=== PATIENT | male | born 1925 | race Hispanic/Latino ===

== ENCOUNTER 2017-09-05 14:30 | Emergency (ER) | payer MEDICARE ==
[2017-09-05 15:05] LABS: HEMATOCRIT 24.4 % (42-54); MEAN CORPUSCULAR HEMOGLOBIN 32.2 pg (27.0-33.0); MEAN CORPUSCULAR HGB CONC 34.4 g/dL (32.0-36.0); MEAN CORPUSCULAR VOLUME 93.6 fL (79-99); PLATELET COUNT (AUTO) 174 K/uL (130-400); RED BLOOD CELL COUNT(AUTO) 2.61 MIL/uL (4.50-6.20); RED CELL DISTRIBUTION WIDTH 18.6 % (11.0-15.5)
[2017-09-05 15:12] LABS: WHITE BLOOD COUNT (AUTO) 53.9 K/uL (4.8-10.8)
[2017-09-05 15:14] LABS: CREATININE 1.5 mg/dL (0.5-1.5); POTASSIUM 3.2 mmol/L (3.5-5.1)
[2017-09-05 15:19] LABS: ALBUMIN 3.7 g/dL (3.5-5.0); BILIRUBIN,TOTAL 0.5 mg/dL (0.2-1.0); TOTAL PROTEIN, SERUM 7.1 g/dL (6.0-8.3)
[2017-09-05 15:58] LABS: BAND NEUTROPHILS % (MANUAL) 4 % (0-2); LYMPHOCYTES % (MANUAL) 5 % (22-44); MAN.DIFF COMMENT-IMPRESSION MANUAL DIFFERENTIAL; METAMYELOCYTES % 2 % (0-0); MONOCYTES % (MANUAL) 38 % (2-9); PROMYELOCYTES % 2 (0-0); SEGMENTED NEUTROPHILS % 49 % (40-70)
[2017-09-05 16:50] LABS: APPEARANCE,URINE Clear (CLEAR); BILIRUBIN,URINE Negative (NEGATIVE); COLOR,URINE Yellow (YELLOW); GLUCOSE, URINE (UA) Negative (NEGATIVE); KETONES,URINE Negative (NEGATIVE); LEUKOCYTE ESTERASE ,URINE Negative (NEGATIVE); NITRATE,URINE Negative (NEGATIVE); OCCULT BLOOD,URINE Negative (NEGATIVE); PH,URINE 5.5 (5.0-8.0); PROTEIN,URINE Negative (NEGATIVE)
== END 2017-09-05 18:59 | disposition home or self-care (01) ==
LOC: EDH 14:30
DX: C95.90 Leukemia, unspecified not having achieved remission (principal); R59.0 Localized enlarged lymph nodes; Z87.891 Personal history of nicotine dependence
CPT/HCPCS: 36415; 71020; 73502; 76882; 80053; 81003; 82150; 83690; 85025; 85651; 86141; 88313

== ENCOUNTER 2017-09-08 10:51 | Inpatient (IN) | payer MEDICARE ==
[~2017-09-08] VITALS: Ht 157.5 cm; Wt 57.6 kg
[2017-09-08] MEDS ORDERED: IPRATROPIUM/ALBUTEROL SULFATE 3 ML SOLUTION IH ONE ×2 (10:56→12:37)
[2017-09-08 11:19] LABS: HEMATOCRIT 27.9 % (42-54); MEAN CORPUSCULAR HEMOGLOBIN 29.9 pg (27.0-33.0); MEAN CORPUSCULAR HGB CONC 31.7 g/dL (32.0-36.0); MEAN CORPUSCULAR VOLUME 94.4 fL (79-99); PLATELET COUNT (AUTO) 28 K/uL (130-400); RED BLOOD CELL COUNT(AUTO) 2.95 MIL/uL (4.50-6.20); RED CELL DISTRIBUTION WIDTH 20.1 % (11.0-15.5)
[2017-09-08 11:53] LABS: ALBUMIN 3.7 g/dL (3.5-5.0); BILIRUBIN,TOTAL 1.3 mg/dL (0.2-1.0); TOTAL PROTEIN, SERUM 7.3 g/dL (6.0-8.3); WHITE BLOOD COUNT (AUTO) 128.9 K/uL (4.8-10.8)
[2017-09-08 11:58] LABS: POTASSIUM 2.7 mmol/L (3.5-5.1)
[2017-09-08] MEDS ORDERED: OSELTAMIVIR PHOSPHATE 75 MG CAP ONE (12:19)
[2017-09-08] MEDS ORDERED: SODIUM CHLORIDE 0.9% 1000ML 2,000 ML IV ONE (12:21)
[2017-09-08] MEDS ORDERED: ZOSYN 3.375GM+NS 50ML 50 ML IV ONE (12:21)
[2017-09-08 12:22] LABS: CREATINE KINASE MB 0.9 ng/mL (0.5-3.6)
[2017-09-08] MEDS ORDERED: POTASSIUM BICARB/CIT AC 25 MEQ TABLET.EFF ONE (12:29)
[2017-09-08 12:55] LABS: BAND NEUTROPHILS % (MANUAL) 3 % (0-2); LYMPHOCYTES % (MANUAL) 5 % (22-44); MAN.DIFF COMMENT-IMPRESSION MANUAL DIFFERENTIAL; MONOCYTES % (MANUAL) 68 % (2-9); SEGMENTED NEUTROPHILS % 24 % (40-70)
[2017-09-08 13:59] LABS: APPEARANCE,URINE Cloudy (CLEAR); BILIRUBIN,URINE Negative (NEGATIVE); COLOR,URINE Yellow (YELLOW); GLUCOSE, URINE (UA) Negative (NEGATIVE); KETONES,URINE Negative (NEGATIVE); LEUKOCYTE ESTERASE ,URINE Negative (NEGATIVE); NITRATE,URINE Negative (NEGATIVE); OCCULT BLOOD,URINE Small (NEGATIVE); PROTEIN,URINE POS 2+ (NEGATIVE)
[2017-09-08 14:15] VITALS: BP 124/56
[2017-09-08 14:17] LABS: BACTERIA,URINE Rare /HPF (None Seen); RBC,URINE 0-1 /HPF (0-1); SQUAMOUS EPITHELIAL CELL,UR Rare /LPF (0-2); WBC,URINE None Seen /HPF (0-1)
[2017-09-08] MEDS ORDERED: SODIUM CHLORIDE 0.9% 10 ML VIAL IVP PRN (15:00)
[2017-09-08] MEDS ORDERED: IPRATROPIUM/ALBUTEROL SULFATE 3 ML SOLUTION IH PRN (15:00)
[2017-09-08] MEDS: WATER FOR INJECTION,STERILE 5 ML VIAL INJ SCH (15:55)
[2017-09-08] MEDS: CEFTRIAXONE SODIUM 1 GM IVP SCH (15:55)
[2017-09-08] MEDS: AZITHROMYCIN 500MG+NS 250ML 250 ML IV SCH (15:55)
[2017-09-08] MEDS ORDERED: TAMS0.4C32 PO (16:08)
[2017-09-08] MEDS ORDERED: HYDR500C2 PO (16:08)
[2017-09-08] MEDS: INSULIN R PO SS1 SQ SCH ×2 (16:30→21:00)
[2017-09-08 16:45] VITALS: BP 132/63
[2017-09-08] MEDS ORDERED: PHARMACY COMMUNICATION MISC SCH ×4 (16:45→20:00)
[2017-09-08] MEDS ORDERED: POTASSIUM CHLORIDE 20MEQ/100ML 100 ML IV PRN (16:45)
[2017-09-08] MEDS ORDERED: LIDOCAINE HCL-MPF 1% 2ML VIAL IVP PRN (16:45)
[2017-09-08] MEDS ORDERED: POTASSIUM CHLORIDE 10% ELIXIR 20 MEQ/15 ML UDCUP PO PRN (16:45)
[2017-09-08] MEDS ORDERED: POTASSIUM CHLORIDE 20 MEQ ERTAB PO PRN (16:45)
[2017-09-08] MEDS ORDERED: ACETAMINOPHEN 325 MG TAB PO PRN (16:45)
[2017-09-08] MEDS ORDERED: COMPOUND PO MISCELLANEOUS 1 EACH MISC MISC PRN (17:00)
[2017-09-08] MEDS ORDERED: VANCOMYCIN PROTOCOL PER PHARMACY IV SCH (19:15)
[2017-09-08] MEDS ORDERED: COMPOUND IV REFRIGERATED 1 EACH IVSOLN MISC PRN (19:30)
[2017-09-08 19:42] LABS: ABG BASE EXCESS -2.2 mmol/L (-2.0-3.0); ABG HCO3 19.9 mmol/L (21.0-28.0); ABG OXYGEN SATURATION 92.7 % (95.0-99.0); ABG PCO2 28 mmHg (35-48)
[2017-09-08] MEDS ORDERED: LIDOCAINE HCL-MPF 1% 2ML VIAL IV PRN (20:00)
[2017-09-08] MEDS ORDERED: POTASSIUM CHLORIDE 10MEQ/100ML 100 ML IV PRN (20:00)
[2017-09-08 20:17] VITALS: BP 110/46
[2017-09-08] MEDS: VANCOMYCIN IV SCH (20:38)
[2017-09-08] MEDS: DEXTROSE 5% IV SCH (20:38)
[2017-09-08] MEDS: WATER IV SCH (20:38)
[2017-09-08] MEDS: OSELTAMIVIR SUSP 15 MG/ML (6 CAPS/29ML) PO SCH ×2 (20:39)
[2017-09-08] MEDS: ZOSYN 3.375GM+NS 50ML 50 ML IV SCH (23:12)
[2017-09-08] MEDS: IPRATROPIUM/ALBUTEROL SULFATE 3 ML SOLUTION IH SCH (23:16)
[2017-09-09 00:03] VITALS: BP 112/54
[2017-09-09 03:59] VITALS: BP 119/60
[2017-09-09] MEDS: IPRATROPIUM/ALBUTEROL SULFATE 3 ML SOLUTION IH SCH ×3 (04:35→17:19)
[2017-09-09 05:21] LABS: ALBUMIN 2.7 g/dL (3.5-5.0); BILIRUBIN,TOTAL 0.8 mg/dL (0.2-1.0); CREATININE 1.7 mg/dL (0.5-1.5); POTASSIUM 3.8 mmol/L (3.5-5.1); TOTAL PROTEIN, SERUM 5.6 g/dL (6.0-8.3)
[2017-09-09] MEDS: ZOSYN 3.375GM+NS 50ML 50 ML IV SCH ×2 (06:15→14:34)
[2017-09-09] MEDS: INSULIN R PO SS1 SQ SCH ×4 (06:23→21:00)
[2017-09-09 06:39] LABS: HEMATOCRIT 21.4 % (42-54); MEAN CORPUSCULAR HEMOGLOBIN 30.9 pg (27.0-33.0); MEAN CORPUSCULAR HGB CONC 33.3 g/dL (32.0-36.0); MEAN CORPUSCULAR VOLUME 92.6 fL (79-99); PLATELET COUNT (AUTO) 14 K/uL (130-400); RED BLOOD CELL COUNT(AUTO) 2.31 MIL/uL (4.50-6.20); RED CELL DISTRIBUTION WIDTH 20.2 % (11.0-15.5)
[2017-09-09 06:53] LABS: WHITE BLOOD COUNT (AUTO) 60.4 K/uL (4.8-10.8)
[2017-09-09 07:30] VITALS: BP 105/52
[2017-09-09] MEDS ORDERED: HYDROXYUREA 500 MG CAP PO SCH (09:00)
[2017-09-09] MEDS ORDERED: OSELTAMIVIR PHOSPHATE 75 MG CAP PO SCH (09:00)
[2017-09-09] MEDS: TAMSULOSIN HCL 0.4 MG CAP.ER.24H PO SCH (09:50)
[2017-09-09] MEDS: GUAIFENESIN-DM 200/20 MG 10 ML PO PRN ×2 (09:50→15:29)
[2017-09-09] MEDS: AZITHROMYCIN 500MG+NS 250ML 250 ML IV SCH (09:50)
[2017-09-09] MEDS: OSELTAMIVIR SUSP 15 MG/ML (6 CAPS/29ML) PO SCH ×2 (09:55)
[2017-09-09 11:56] VITALS: BP 101/51
[2017-09-09] MEDS: CEFTRIAXONE SODIUM 1 GM IVP SCH (15:29)
[2017-09-09] MEDS: WATER FOR INJECTION,STERILE 5 ML VIAL INJ SCH (15:29)
[2017-09-09 16:31] VITALS: BP 112/51
[2017-09-09] MEDS ORDERED: DiphenhydrAMINE HCL 50 MG/ML VIAL IV SCH (18:00)
[2017-09-09] MEDS ORDERED: FUROSEMIDE 10 MG/ML 2ML VIAL IV SCH (18:00)
[2017-09-09] MEDS ORDERED: SODIUM CHLORIDE 0.9% 500ML 500 ML IV ONE (19:47)
[2017-09-09 20:00] VITALS: BP 146/59
[2017-09-09] MEDS ORDERED: HYDROMORPHONE HCL 0.5 MG/0.5 ML ML IVP PRN (20:15)
[2017-09-10] VITALS (7 sets, daily range): BP systolic 104–125; BP diastolic 50–64
[2017-09-10] MEDS: ZOSYN 3.375GM+NS 50ML 50 ML IV SCH ×4 (00:05→21:45)
[2017-09-10] MEDS: OSELTAMIVIR SUSP 15 MG/ML (6 CAPS/29ML) PO SCH ×6 (00:06→21:46)
[2017-09-10] MEDS: IPRATROPIUM/ALBUTEROL SULFATE 3 ML SOLUTION IH SCH ×4 (00:21→20:46)
[2017-09-10] MEDS ORDERED: FUROSEMIDE 10 MG/ML 2ML VIAL ONE (03:21)
[2017-09-10 05:19] LABS: BASOPHILS % (AUTO) 0.4 % (0.0-5.0); EOSINOPHILS % (AUTO) 0.4 % (0.0-8.0); MEAN CORPUSCULAR HEMOGLOBIN 32.4 pg (27.0-33.0); MEAN CORPUSCULAR HGB CONC 35.3 g/dL (32.0-36.0); MEAN CORPUSCULAR VOLUME 91.8 fL (79-99); MONOCYTES % (AUTO) 56.9 % (3.0-13.0); NEUTROPHILS % (AUTO) 37.3 % (40.0-77.0); PLATELET COUNT (AUTO) 12 K/uL (130-400); RED CELL DISTRIBUTION WIDTH 19.9 % (11.0-15.5)
[2017-09-10 05:28] LABS: WHITE BLOOD COUNT (AUTO) 37.4 K/uL (4.8-10.8)
[2017-09-10 05:34] LABS: ALBUMIN 2.8 g/dL (3.5-5.0); BILIRUBIN,TOTAL 1.3 mg/dL (0.2-1.0); CREATININE 1.7 mg/dL (0.5-1.5); POTASSIUM 3.4 mmol/L (3.5-5.1); TOTAL PROTEIN, SERUM 5.9 g/dL (6.0-8.3); URIC ACID 5.8 mg/dL (2.6-7.2)
[2017-09-10] MEDS: INSULIN R PO SS1 SQ SCH ×2 (06:29→21:00)
[2017-09-10] MEDS: TAMSULOSIN HCL 0.4 MG CAP.ER.24H PO SCH (09:47)
[2017-09-10] MEDS: AZITHROMYCIN 500MG+NS 250ML 250 ML IV SCH (09:47)
[2017-09-10] MEDS: GUAIFENESIN-DM 200/20 MG 10 ML PO PRN (09:48)
[2017-09-10] MEDS: WATER IV SCH (21:45)
[2017-09-10] MEDS: DEXTROSE 5% IV SCH (21:45)
[2017-09-10] MEDS: VANCOMYCIN IV SCH (21:45)
[2017-09-10] MEDS: POTASSIUM CHLORIDE 10 MEQ/TAB.SR PO PRN (21:55)
[2017-09-11] MEDS: IPRATROPIUM/ALBUTEROL SULFATE 3 ML SOLUTION IH SCH ×4 (00:28→19:33)
[2017-09-11 03:00] VITALS: BP 117/48
[2017-09-11 05:15] LABS: HEMATOCRIT 21.7 % (42-54); MEAN CORPUSCULAR HEMOGLOBIN 30.9 pg (27.0-33.0); PLATELET COUNT (AUTO) 17 K/uL (130-400); RED BLOOD CELL COUNT(AUTO) 2.38 MIL/uL (4.50-6.20); RED CELL DISTRIBUTION WIDTH 20.9 % (11.0-15.5)
[2017-09-11 05:19] LABS: CREATININE 1.6 mg/dL (0.5-1.5); POTASSIUM 3.4 mmol/L (3.5-5.1)
[2017-09-11 05:26] LABS: WHITE BLOOD COUNT (AUTO) 50.1 K/uL (4.8-10.8)
[2017-09-11] MEDS: ZOSYN 3.375GM+NS 50ML 50 ML IV SCH ×3 (06:58→22:15)
[2017-09-11] MEDS: INSULIN R PO SS1 SQ SCH ×4 (06:59→21:00)
[2017-09-11 08:03] VITALS: BP 106/47
[2017-09-11] MEDS: OSELTAMIVIR SUSP 15 MG/ML (6 CAPS/29ML) PO SCH ×4 (10:23→22:16)
[2017-09-11] MEDS: POTASSIUM CHLORIDE 10% ELIXIR 20 MEQ/15 ML UDCUP PO PRN (10:24)
[2017-09-11] MEDS: TAMSULOSIN HCL 0.4 MG CAP.ER.24H PO SCH (10:24)
[2017-09-11] MEDS: AZITHROMYCIN 500MG+NS 250ML 250 ML IV SCH (10:24)
[2017-09-11 11:30] VITALS: BP 109/48
[2017-09-11 16:52] VITALS: BP 122/60
[2017-09-11 19:00] VITALS: BP 129/58
[2017-09-11] MEDS ORDERED: FUROSEMIDE 20 MG TABLET PO SCH (19:45)
[2017-09-11] MEDS ORDERED: DIPHENHYDRAMINE HCL 25 MG CAPSULE PO SCH (19:45)
[2017-09-11] MEDS ORDERED: FUROSEMIDE 10 MG/ML 2ML VIAL IV ONE (20:15)
[2017-09-11] MEDS ORDERED: DiphenhydrAMINE HCL 50 MG/ML VIAL IV ONE (20:30)
[2017-09-11] MEDS ORDERED: DiphenhydrAMINE HCL 50 MG/ML VIAL ONE (22:02)
[2017-09-11] MEDS: METHYLPREDNISOLONE SOD SUCC 40MG/ML 1ML IVP SCH (22:14)
[2017-09-11] MEDS ORDERED: SODIUM CHLORIDE 0.9% 500ML 500 ML IV ONE ×2 (22:20→22:44)
[2017-09-12] VITALS (22 sets, daily range): BP systolic 106–147; BP diastolic 40–89
[2017-09-12] MEDS: IPRATROPIUM/ALBUTEROL SULFATE 3 ML SOLUTION IH SCH ×5 (00:20→23:39)
[2017-09-12] MEDS ORDERED: FUROSEMIDE 10 MG/ML 2ML VIAL ONE (02:13)
[2017-09-12 04:05] LABS: HEMATOCRIT 25.1 % (42-54); MEAN CORPUSCULAR HEMOGLOBIN 29.9 pg (27.0-33.0); MEAN CORPUSCULAR HGB CONC 33.8 g/dL (32.0-36.0); MEAN CORPUSCULAR VOLUME 88.4 fL (79-99); PLATELET COUNT (AUTO) 30 K/uL (130-400); RED BLOOD CELL COUNT(AUTO) 2.84 MIL/uL (4.50-6.20); RED CELL DISTRIBUTION WIDTH 22.5 % (11.0-15.5)
[2017-09-12 04:32] LABS: WHITE BLOOD COUNT (AUTO) 74.8 K/uL (4.8-10.8)
[2017-09-12 05:02] LABS: CREATININE 1.7 mg/dL (0.5-1.5); POTASSIUM 3.5 mmol/L (3.5-5.1)
[2017-09-12] MEDS: ZOSYN 3.375GM+NS 50ML 50 ML IV SCH ×3 (05:07→21:08)
[2017-09-12] MEDS: INSULIN R PO SS1 SQ SCH ×4 (06:22→21:07)
[2017-09-12] MEDS: POTASSIUM CHLORIDE 10 MEQ/TAB.SR PO PRN (06:40)
[2017-09-12] MEDS: AZITHROMYCIN 500MG+NS 250ML 250 ML IV SCH (08:07)
[2017-09-12] MEDS: METHYLPREDNISOLONE SOD SUCC 40MG/ML 1ML IVP SCH ×2 (08:07→20:58)
[2017-09-12] MEDS: TAMSULOSIN HCL 0.4 MG CAP.ER.24H PO SCH (08:07)
[2017-09-12] MEDS: OSELTAMIVIR SUSP 15 MG/ML (6 CAPS/29ML) PO SCH ×4 (08:07→20:59)
[2017-09-12] MEDS: DEXTROSE 5% IV SCH (20:57)
[2017-09-12] MEDS: VANCOMYCIN IV SCH (20:57)
[2017-09-12] MEDS: WATER IV SCH (20:57)
[2017-09-13] VITALS (24 sets, daily range): BP systolic 95–136; BP diastolic 43–76
[2017-09-13] MEDS: ZOSYN 3.375GM+NS 50ML 50 ML IV SCH ×3 (06:30→20:23)
[2017-09-13] MEDS: INSULIN R PO SS1 SQ SCH ×4 (07:13→20:27)
[2017-09-13] MEDS: IPRATROPIUM/ALBUTEROL SULFATE 3 ML SOLUTION IH SCH ×4 (08:05→23:43)
[2017-09-13] MEDS: METHYLPREDNISOLONE SOD SUCC 40MG/ML 1ML IVP SCH ×2 (09:14→20:23)
[2017-09-13] MEDS: TAMSULOSIN HCL 0.4 MG CAP.ER.24H PO SCH (09:14)
[2017-09-13] MEDS: AZITHROMYCIN 500MG+NS 250ML 250 ML IV SCH (09:14)
[2017-09-13 12:06] LABS: ALBUMIN 2.6 g/dL (3.5-5.0); BILIRUBIN,TOTAL 1.1 mg/dL (0.2-1.0); CREATININE 1.7 mg/dL (0.5-1.5); POTASSIUM 3.3 mmol/L (3.5-5.1); TOTAL PROTEIN, SERUM 6.2 g/dL (6.0-8.3)
[2017-09-13] MEDS: POTASSIUM CHLORIDE 10 MEQ/TAB.SR PO PRN (19:09)
[2017-09-14 04:03] VITALS: BP 135/51
[2017-09-14 04:43] LABS: HEMATOCRIT 22.7 % (42-54); MEAN CORPUSCULAR HEMOGLOBIN 29.4 pg (27.0-33.0); MEAN CORPUSCULAR HGB CONC 33.3 g/dL (32.0-36.0); MEAN CORPUSCULAR VOLUME 88.1 fL (79-99); PLATELET COUNT (AUTO) 58 K/uL (130-400); RED BLOOD CELL COUNT(AUTO) 2.58 MIL/uL (4.50-6.20); RED CELL DISTRIBUTION WIDTH 23.1 % (11.0-15.5)
[2017-09-14 04:44] LABS: WHITE BLOOD COUNT (AUTO) 71.7 K/uL (4.8-10.8)
[2017-09-14 04:54] LABS: ALBUMIN 2.3 g/dL (3.5-5.0); BILIRUBIN,TOTAL 0.9 mg/dL (0.2-1.0); CREATININE 1.5 mg/dL (0.5-1.5); POTASSIUM 3.3 mmol/L (3.5-5.1); TOTAL PROTEIN, SERUM 5.7 g/dL (6.0-8.3)
[2017-09-14] MEDS: POTASSIUM CHLORIDE 10 MEQ/TAB.SR PO PRN ×2 (05:06→20:37)
[2017-09-14] MEDS: ZOSYN 3.375GM+NS 50ML 50 ML IV SCH ×3 (05:06→22:21)
[2017-09-14] MEDS: IPRATROPIUM/ALBUTEROL SULFATE 3 ML SOLUTION IH SCH ×4 (06:07→23:19)
[2017-09-14] MEDS: INSULIN R PO SS1 SQ SCH ×4 (06:17→20:30)
[2017-09-14 07:00] VITALS: BP 127/53
[2017-09-14] MEDS: AZITHROMYCIN 500MG+NS 250ML 250 ML IV SCH (07:47)
[2017-09-14] MEDS: TAMSULOSIN HCL 0.4 MG CAP.ER.24H PO SCH (07:47)
[2017-09-14] MEDS: METHYLPREDNISOLONE SOD SUCC 40MG/ML 1ML IVP SCH ×2 (07:47→20:36)
[2017-09-14 11:42] VITALS: BP 112/50
[2017-09-14 16:00] VITALS: BP 122/52
[2017-09-14 19:45] VITALS: BP 123/51
[2017-09-14] MEDS ORDERED: WATER IV SCH (20:15)
[2017-09-14] MEDS ORDERED: VANCOMYCIN IV SCH (20:15)
[2017-09-14] MEDS ORDERED: DEXTROSE 5% IV SCH (20:15)
[2017-09-14] MEDS: VANCOMYCIN 1GM+NS 250ML 250 ML IV SCH (20:36)
[2017-09-14] MEDS: GUAIFENESIN-DM 200/20 MG 10 ML PO PRN (20:37)
[2017-09-14 23:34] VITALS: BP 129/61
[2017-09-15 04:01] VITALS: BP 131/69
[2017-09-15 04:26] LABS: HEMATOCRIT 22.4 % (42-54); MEAN CORPUSCULAR HEMOGLOBIN 27.8 pg (27.0-33.0); MEAN CORPUSCULAR HGB CONC 31.8 g/dL (32.0-36.0); MEAN CORPUSCULAR VOLUME 87.3 fL (79-99); PLATELET COUNT (AUTO) 75 K/uL (130-400); RED BLOOD CELL COUNT(AUTO) 2.57 MIL/uL (4.50-6.20); RED CELL DISTRIBUTION WIDTH 22.6 % (11.0-15.5)
[2017-09-15 04:42] LABS: ALBUMIN 2.3 g/dL (3.5-5.0); BILIRUBIN,TOTAL 0.9 mg/dL (0.2-1.0); CREATININE 1.5 mg/dL (0.5-1.5); POTASSIUM 3.4 mmol/L (3.5-5.1); TOTAL PROTEIN, SERUM 5.5 g/dL (6.0-8.3)
[2017-09-15 04:49] LABS: WHITE BLOOD COUNT (AUTO) 77.6 K/uL (4.8-10.8)
[2017-09-15] MEDS: ZOSYN 3.375GM+NS 50ML 50 ML IV SCH ×3 (05:16→22:33)
[2017-09-15] MEDS: IPRATROPIUM/ALBUTEROL SULFATE 3 ML SOLUTION IH SCH ×4 (05:58→23:34)
[2017-09-15] MEDS: INSULIN R PO SS1 SQ SCH ×4 (06:14→21:00)
[2017-09-15 07:00] VITALS: BP 138/64
[2017-09-15] MEDS: TAMSULOSIN HCL 0.4 MG CAP.ER.24H PO SCH (09:37)
[2017-09-15] MEDS: AZITHROMYCIN 500MG+NS 250ML 250 ML IV SCH (09:38)
[2017-09-15] MEDS: METHYLPREDNISOLONE SOD SUCC 40MG/ML 1ML IVP SCH ×2 (09:38→21:00)
[2017-09-15 11:00] VITALS: BP 140/60
[2017-09-15 16:00] VITALS: BP 136/74
[2017-09-15] MEDS: VANCOMYCIN 1GM+NS 250ML 250 ML IV SCH (19:52)
[2017-09-15 20:03] VITALS: BP 144/67
[2017-09-15] MEDS ORDERED: VANCOMYCIN IV SCH (21:00)
[2017-09-15] MEDS ORDERED: WATER IV SCH (21:00)
[2017-09-15] MEDS ORDERED: DEXTROSE 5% IV SCH (21:00)
[2017-09-15] MEDS: VANCOMYCIN IV SCH (21:02)
[2017-09-15] MEDS: DEXTROSE 5% IV SCH (21:02)
[2017-09-15] MEDS: WATER IV SCH (21:02)
[2017-09-15 23:45] VITALS: BP 150/74
[2017-09-16 03:59] VITALS: BP 141/95
[2017-09-16] MEDS: ZOSYN 3.375GM+NS 50ML 50 ML IV SCH ×3 (05:22→21:54)
[2017-09-16] MEDS: IPRATROPIUM/ALBUTEROL SULFATE 3 ML SOLUTION IH SCH ×3 (05:55→19:13)
[2017-09-16] MEDS: INSULIN R PO SS1 SQ SCH ×4 (06:02→21:57)
[2017-09-16 07:48] VITALS: BP 140/74
[2017-09-16 08:53] LABS: INR 1.36 (0.85-1.15); PARTIAL THROMBOPLASTIN TIME 33.5 SEC (26.3-35.5); PROTHROMBIN TIME 14.2 SEC (9.6-11.6)
[2017-09-16] MEDS: EPOETIN ALFA 10,000 UNIT/ML VIAL SQ SCH (10:15)
[2017-09-16] MEDS: METHYLPREDNISOLONE SOD SUCC 40MG/ML 1ML IVP SCH ×2 (10:15→21:53)
[2017-09-16] MEDS: TAMSULOSIN HCL 0.4 MG CAP.ER.24H PO SCH (10:15)
[2017-09-16 11:27] VITALS: BP 119/65
[2017-09-16] MEDS ORDERED: ALBUTEROL SULFATE 0.083% 2.5 MG/3 ML INH IH ONE (14:50)
[2017-09-16 16:10] LABS: CREATININE 1.5 mg/dL (0.5-1.5); POTASSIUM 3.1 mmol/L (3.5-5.1)
[2017-09-16 16:11] VITALS: BP 147/66
[2017-09-16 16:11] LABS: HEMATOCRIT 22.9 % (42-54); MEAN CORPUSCULAR HEMOGLOBIN 28.5 pg (27.0-33.0); PLATELET COUNT (AUTO) 104 K/uL (130-400); RED BLOOD CELL COUNT(AUTO) 2.58 MIL/uL (4.50-6.20); RED CELL DISTRIBUTION WIDTH 23.3 % (11.0-15.5)
[2017-09-16] MEDS: POTASSIUM CHLORIDE 10% ELIXIR 20 MEQ/15 ML UDCUP PO PRN (19:23)
[2017-09-16] MEDS: POTASSIUM CHLORIDE 10 MEQ/TAB.SR PO PRN ×2 (19:23→22:04)
[2017-09-16 19:34] VITALS: BP 121/58
[2017-09-16] MEDS: VANCOMYCIN 1GM+NS 250ML 250 ML IV SCH (20:15)
[2017-09-16] MEDS: ALBUTEROL SULFATE 0.083% 2.5 MG/3 ML INH IH SCH ×3 (20:56→23:56)
[2017-09-16] MEDS: DEXTROSE 5% IV SCH (21:58)
[2017-09-16] MEDS: VANCOMYCIN IV SCH (21:58)
[2017-09-16] MEDS: WATER IV SCH (21:58)
[2017-09-16] MEDS: GUAIFENESIN-CODEINE 5 ML SYRUP PO PRN (22:04)
[2017-09-16] MEDS ORDERED: SODIUM CHLORIDE 0.9% 250 ML IV ONE (22:13)
[2017-09-16] MEDS: BUDESONIDE 0.5 MG/2 ML INH IH SCH (22:51)
[2017-09-16 23:30] VITALS: BP 135/64
[2017-09-17] VITALS (25 sets, daily range): BP systolic 102–167; BP diastolic 47–71
[2017-09-17 05:14] LABS: HEMATOCRIT 22.2 % (42-54); MEAN CORPUSCULAR HEMOGLOBIN 27.2 pg (27.0-33.0); MEAN CORPUSCULAR HGB CONC 30.7 g/dL (32.0-36.0); MEAN CORPUSCULAR VOLUME 88.7 fL (79-99); PLATELET COUNT (AUTO) 108 K/uL (130-400); RED BLOOD CELL COUNT(AUTO) 2.51 MIL/uL (4.50-6.20); RED CELL DISTRIBUTION WIDTH 23.8 % (11.0-15.5)
[2017-09-17 05:29] LABS: WHITE BLOOD COUNT (AUTO) 138.2 K/uL (4.8-10.8)
[2017-09-17 05:37] LABS: CREATININE 1.4 mg/dL (0.5-1.5); POTASSIUM 3.6 mmol/L (3.5-5.1)
[2017-09-17] MEDS: IPRATROPIUM/ALBUTEROL SULFATE 3 ML SOLUTION IH SCH ×5 (06:40→23:12)
[2017-09-17] MEDS: ZOSYN 3.375GM+NS 50ML 50 ML IV SCH ×3 (07:29→21:48)
[2017-09-17] MEDS: INSULIN R PO SS1 SQ SCH ×4 (07:30→21:00)
[2017-09-17] MEDS: TAMSULOSIN HCL 0.4 MG CAP.ER.24H PO SCH (07:39)
[2017-09-17 07:44] LABS: BAND NEUTROPHILS % (MANUAL) 15 % (0-2); LYMPHOCYTES % (MANUAL) 1 % (22-44); MAN.DIFF COMMENT-IMPRESSION MANUAL DIFFERENTIAL; METAMYELOCYTES % 1 % (0-0); MONOCYTES % (MANUAL) 12 % (2-9); MYELOCYTES % 3 % (0-0); SEGMENTED NEUTROPHILS % 68 % (40-70)
[2017-09-17 07:46] LABS: PLATELET MORPHOLOGY COMMENT SLIGHTLY DECREASED
[2017-09-17] MEDS: METHYLPREDNISOLONE SOD SUCC 40MG/ML 1ML IVP SCH (08:23)
[2017-09-17] MEDS: BUDESONIDE 0.5 MG/2 ML INH IH SCH ×2 (09:00→18:43)
[2017-09-17] MEDS ORDERED: GLYCOPYRROLATE 0.2 MG/ML 5 ML VIAL ONE (11:30)
[2017-09-17] MEDS ORDERED: LIDOCAINE PF 2% 5ML ABBOJECT ONE (11:30)
[2017-09-17] MEDS ORDERED: SUCCINYLCHOLINE 200MG/10ML SYR ONE (11:30)
[2017-09-17] MEDS ORDERED: DEXAMETHASONE SOD PHOSPHATE 10MG/ML 1ML VIAL ONE (11:30)
[2017-09-17] MEDS ORDERED: NEOSTIGMINE METHYLSULFATE 1MG/ML IV ONE (11:30)
[2017-09-17] MEDS ORDERED: ONDANSETRON HCL 4 MG/2 ML VIAL ONE (11:30)
[2017-09-17] MEDS ORDERED: FENTANYL CITRATE PF 50 MCG/1 ML 2ML VIAL ONE (11:31)
[2017-09-17] MEDS ORDERED: SODIUM CHLORIDE 0.9% 10 ML VIAL ONE (11:31)
[2017-09-17] MEDS ORDERED: PROPOFOL 10 MG/ML 20ML VIAL IV ONE (11:31)
[2017-09-17] MEDS ORDERED: MIDAZOLAM HCL 1 MG/ML 2ML VIAL ONE (11:31)
[2017-09-17] MEDS ORDERED: PHENYLEPHRINE HCL 10 MG/ML 1ML VIAL IV ONE (11:31)
[2017-09-17] MEDS ORDERED: LIDOCAINE HCL 2% 20ML ONE (11:49)
[2017-09-17 20:12] LABS: APPEARANCE BODY FLUID CLOUDY (CLEAR); COLOR,BODY FLUID COLORLESS (LT YELLOW); SPECIMENTYPE,BODY FLUID PULMONARY
[2017-09-17 20:13] LABS: BODY FLUID RBC 219 /cu. mm.; BODY FLUID WBC 517 /cu. mm.; TOTAL VOLUME,BODY FLUID 24 mL
[2017-09-17 20:29] LABS: BF EOSINOPHIL 2 %; BF LYMPHOCYTE 5 %; BF MONOCYTE 2 %
[2017-09-17] MEDS: METHYLPREDNISOLONE SOD SUCC 125MG/2ML VIAL IVP SCH (21:12)
[2017-09-17] MEDS: VANCOMYCIN 1GM+NS 250ML 250 ML IV SCH (21:47)
[2017-09-18 03:47] VITALS: BP 154/66
[2017-09-18 04:47] LABS: HEMATOCRIT 25.5 % (42-54); MEAN CORPUSCULAR HEMOGLOBIN 29.9 pg (27.0-33.0); MEAN CORPUSCULAR HGB CONC 33.7 g/dL (32.0-36.0); MEAN CORPUSCULAR VOLUME 88.7 fL (79-99); PLATELET COUNT (AUTO) 113 K/uL (130-400); RED BLOOD CELL COUNT(AUTO) 2.88 MIL/uL (4.50-6.20); RED CELL DISTRIBUTION WIDTH 20.3 % (11.0-15.5)
[2017-09-18 04:51] LABS: CREATININE 1.4 mg/dL (0.5-1.5); POTASSIUM 3.7 mmol/L (3.5-5.1)
[2017-09-18] MEDS: INSULIN R PO SS1 SQ SCH ×4 (06:28→21:00)
[2017-09-18] MEDS: ZOSYN 3.375GM+NS 50ML 50 ML IV SCH ×3 (06:28→21:31)
[2017-09-18] MEDS: TAMSULOSIN HCL 0.4 MG CAP.ER.24H PO SCH (07:34)
[2017-09-18] MEDS: METHYLPREDNISOLONE SOD SUCC 125MG/2ML VIAL IVP SCH ×2 (07:34→21:13)
[2017-09-18] MEDS: IPRATROPIUM/ALBUTEROL SULFATE 3 ML SOLUTION IH SCH ×4 (07:35→23:10)
[2017-09-18] MEDS: BUDESONIDE 0.5 MG/2 ML INH IH SCH ×2 (07:35→18:55)
[2017-09-18 07:59] VITALS: BP 132/67
[2017-09-18] MEDS: EPOETIN ALFA 10,000 UNIT/ML VIAL SQ SCH (10:21)
[2017-09-18] MEDS: GUAIFENESIN-CODEINE 5 ML SYRUP PO PRN (10:41)
[2017-09-18 11:00] VITALS: BP 107/62
[2017-09-18 16:00] VITALS: BP 148/72
[2017-09-18 19:43] VITALS: BP 137/59
[2017-09-18] MEDS: VANCOMYCIN 1GM+NS 250ML 250 ML IV SCH (21:14)
[2017-09-18 23:35] VITALS: BP 151/67
[2017-09-19] MEDS: GUAIFENESIN-CODEINE 5 ML SYRUP PO PRN (00:04)
[2017-09-19 03:39] VITALS: BP 144/61
[2017-09-19] MEDS: IPRATROPIUM/ALBUTEROL SULFATE 3 ML SOLUTION IH SCH ×3 (06:44→19:52)
[2017-09-19] MEDS: ZOSYN 3.375GM+NS 50ML 50 ML IV SCH ×3 (06:45→22:04)
[2017-09-19] MEDS: BUDESONIDE 0.5 MG/2 ML INH IH SCH ×2 (06:54→21:03)
[2017-09-19] MEDS: INSULIN R PO SS1 SQ SCH ×4 (07:30→21:12)
[2017-09-19 07:38] VITALS: BP 137/73
[2017-09-19] MEDS: TAMSULOSIN HCL 0.4 MG CAP.ER.24H PO SCH (09:51)
[2017-09-19] MEDS: METHYLPREDNISOLONE SOD SUCC 125MG/2ML VIAL IVP SCH ×2 (09:51→20:44)
[2017-09-19 11:06] VITALS: BP 127/68
[2017-09-19 16:12] VITALS: BP 143/68
[2017-09-19 20:03] VITALS: BP 131/57
[2017-09-19] MEDS: VANCOMYCIN 1GM+NS 250ML 250 ML IV SCH (20:44)
[2017-09-20] VITALS (7 sets, daily range): BP systolic 120–161; BP diastolic 58–79
[2017-09-20] MEDS: IPRATROPIUM/ALBUTEROL SULFATE 3 ML SOLUTION IH SCH ×4 (00:53→18:52)
[2017-09-20] MEDS: ZOSYN 3.375GM+NS 50ML 50 ML IV SCH ×3 (05:11→21:49)
[2017-09-20] MEDS: INSULIN R PO SS1 SQ SCH ×4 (05:51→20:21)
[2017-09-20] MEDS: BUDESONIDE 0.5 MG/2 ML INH IH SCH ×2 (07:14→18:52)
[2017-09-20] MEDS: METHYLPREDNISOLONE SOD SUCC 125MG/2ML VIAL IVP SCH ×2 (07:57→20:01)
[2017-09-20] MEDS: TAMSULOSIN HCL 0.4 MG CAP.ER.24H PO SCH (07:57)
[2017-09-20] MEDS: EPOETIN ALFA 10,000 UNIT/ML VIAL SQ SCH ×2 (09:00→12:16)
[2017-09-20] MEDS ORDERED: DOCUSATE SODIUM 100 MG CAP PO PRN (11:45)
[2017-09-20] MEDS ORDERED: ONDANSETRON HCL 4 MG/2 ML VIAL IVP PRN (11:45)
[2017-09-20] MEDS ORDERED: LACTULOSE 20 GM/30 ML UDCUP PO PRN (11:45)
[2017-09-20 13:30] LABS: HEMATOCRIT 28.8 % (42-54); MEAN CORPUSCULAR HEMOGLOBIN 30.1 pg (27.0-33.0); MEAN CORPUSCULAR VOLUME 91.3 fL (79-99); PLATELET COUNT (AUTO) 108 K/uL (130-400); RED BLOOD CELL COUNT(AUTO) 3.16 MIL/uL (4.50-6.20); RED CELL DISTRIBUTION WIDTH 21.9 % (11.0-15.5)
[2017-09-20 13:39] LABS: WHITE BLOOD COUNT (AUTO) 167.4 K/uL (4.8-10.8)
[2017-09-20 13:42] LABS: CREATININE 1.5 mg/dL (0.5-1.5); POTASSIUM 3.3 mmol/L (3.5-5.1)
[2017-09-20] MEDS: FLUCONAZOLE 100 MG TAB PO SCH (14:45)
[2017-09-20] MEDS: POTASSIUM CHLORIDE 10 MEQ/TAB.SR PO PRN (18:06)
[2017-09-20] MEDS: VANCOMYCIN 1GM+NS 250ML 250 ML IV SCH (19:57)
[2017-09-21] MEDS: IPRATROPIUM/ALBUTEROL SULFATE 3 ML SOLUTION IH SCH ×4 (01:42→19:24)
[2017-09-21 03:37] VITALS: BP 120/60
[2017-09-21 05:07] LABS: HEMATOCRIT 26.9 % (42-54); MEAN CORPUSCULAR HEMOGLOBIN 29.4 pg (27.0-33.0); MEAN CORPUSCULAR HGB CONC 32.7 g/dL (32.0-36.0); MEAN CORPUSCULAR VOLUME 89.8 fL (79-99); PLATELET COUNT (AUTO) 101 K/uL (130-400); RED BLOOD CELL COUNT(AUTO) 2.99 MIL/uL (4.50-6.20); RED CELL DISTRIBUTION WIDTH 22.3 % (11.0-15.5)
[2017-09-21 05:12] LABS: WHITE BLOOD COUNT (AUTO) 154.8 K/uL (4.8-10.8)
[2017-09-21 05:18] LABS: CREATININE 1.4 mg/dL (0.5-1.5); POTASSIUM 3.2 mmol/L (3.5-5.1)
[2017-09-21] MEDS: ZOSYN 3.375GM+NS 50ML 50 ML IV SCH ×3 (05:40→21:26)
[2017-09-21] MEDS: INSULIN R PO SS1 SQ SCH ×4 (06:05→21:00)
[2017-09-21] MEDS: POTASSIUM CHLORIDE 10% ELIXIR 20 MEQ/15 ML UDCUP PO PRN (06:18)
[2017-09-21 07:20] VITALS: BP 145/67
[2017-09-21] MEDS: BUDESONIDE 0.5 MG/2 ML INH IH SCH ×2 (07:56→19:55)
[2017-09-21] MEDS: METHYLPREDNISOLONE SOD SUCC 125MG/2ML VIAL IVP SCH ×2 (09:39→20:17)
[2017-09-21] MEDS: FLUCONAZOLE 100 MG TAB PO SCH (09:39)
[2017-09-21] MEDS: TAMSULOSIN HCL 0.4 MG CAP.ER.24H PO SCH (09:39)
[2017-09-21] MEDS: GUAIFENESIN-CODEINE 5 ML SYRUP PO PRN ×2 (09:47→20:17)
[2017-09-21 11:00] VITALS: BP 150/70
[2017-09-21 16:48] VITALS: BP 117/58
[2017-09-21 19:34] VITALS: BP 140/64
[2017-09-21] MEDS: VANCOMYCIN 1GM+NS 250ML 250 ML IV SCH (21:27)
[2017-09-21] MEDS ORDERED: HYDROMORPHONE 1 MG/1 ML AMP ONE (23:30)
[2017-09-21] MEDS: HYDROMORPHONE HCL 2 MG/ML VIAL IVP PRN (23:41)
[2017-09-22] VITALS (7 sets, daily range): BP systolic 100–155; BP diastolic 52–74
[2017-09-22] MEDS: IPRATROPIUM/ALBUTEROL SULFATE 3 ML SOLUTION IH SCH ×4 (01:13→18:51)
[2017-09-22] MEDS ORDERED: HYDROMORPHONE 1 MG/1 ML AMP ONE ×2 (03:02→06:09)
[2017-09-22] MEDS: HYDROMORPHONE HCL 2 MG/ML VIAL IVP PRN ×2 (03:18→06:19)
[2017-09-22 04:06] LABS: CREATININE 1.4 mg/dL (0.5-1.5); POTASSIUM 3.3 mmol/L (3.5-5.1)
[2017-09-22] MEDS: ZOSYN 3.375GM+NS 50ML 50 ML IV SCH (05:23)
[2017-09-22] MEDS: INSULIN R PO SS1 SQ SCH ×4 (05:35→21:29)
[2017-09-22] MEDS: POTASSIUM CHLORIDE 10% ELIXIR 20 MEQ/15 ML UDCUP PO PRN ×2 (06:02→08:48)
[2017-09-22] MEDS: BUDESONIDE 0.5 MG/2 ML INH IH SCH ×2 (06:04→18:51)
[2017-09-22] MEDS: METHYLPREDNISOLONE SOD SUCC 125MG/2ML VIAL IVP SCH ×2 (08:45→21:27)
[2017-09-22] MEDS: FLUCONAZOLE 100 MG TAB PO SCH (08:45)
[2017-09-22] MEDS: TAMSULOSIN HCL 0.4 MG CAP.ER.24H PO SCH (08:45)
[2017-09-22] MEDS: HYDROMORPHONE HCL 0.5 MG/0.5 ML ML IVP PRN ×2 (09:48→10:28)
[2017-09-22] MEDS: PIPERACILLIN SODIUM/TAZOBACTAM 3.375 GM VIAL IV SCH ×2 (12:35→17:54)
[2017-09-22] MEDS ORDERED: ZOSYN 3.375GM+NS 50ML 50 ML IV SCH (13:00)
[2017-09-22] MEDS: FUROSEMIDE 10 MG/ML 4ML VIAL IV SCH ×2 (13:58→21:27)
[2017-09-22] MEDS: EPOETIN ALFA 10,000 UNIT/ML VIAL SQ SCH (14:01)
[2017-09-22] MEDS: VANCOMYCIN 1GM+NS 250ML 250 ML IV SCH (21:28)
[2017-09-23] MEDS: IPRATROPIUM/ALBUTEROL SULFATE 3 ML SOLUTION IH SCH ×4 (00:12→20:28)
[2017-09-23] MEDS: PIPERACILLIN SODIUM/TAZOBACTAM 3.375 GM VIAL IV SCH ×5 (01:00→23:38)
[2017-09-23 03:06] VITALS: BP 117/58
[2017-09-23 04:29] LABS: HEMATOCRIT 25.5 % (42-54); MEAN CORPUSCULAR HEMOGLOBIN 29.3 pg (27.0-33.0); MEAN CORPUSCULAR HGB CONC 32.3 g/dL (32.0-36.0); MEAN CORPUSCULAR VOLUME 90.7 fL (79-99); PLATELET COUNT (AUTO) 62 K/uL (130-400); RED BLOOD CELL COUNT(AUTO) 2.81 MIL/uL (4.50-6.20); RED CELL DISTRIBUTION WIDTH 22.5 % (11.0-15.5)
[2017-09-23 04:37] LABS: CREATININE 1.7 mg/dL (0.5-1.5); POTASSIUM 3.4 mmol/L (3.5-5.1)
[2017-09-23 04:43] LABS: WHITE BLOOD COUNT (AUTO) 168.3 K/uL (4.8-10.8)
[2017-09-23 04:50] LABS: B-TYPE NATRIURETIC PEPTIDE 137 pg/mL (0-100)
[2017-09-23] MEDS: FUROSEMIDE 10 MG/ML 4ML VIAL IV SCH ×3 (05:35→21:20)
[2017-09-23] MEDS: INSULIN R PO SS1 SQ SCH ×4 (05:35→21:00)
[2017-09-23] MEDS: BUDESONIDE 0.5 MG/2 ML INH IH SCH ×2 (06:19→21:36)
[2017-09-23 07:00] VITALS: BP 106/49
[2017-09-23] MEDS: METHYLPREDNISOLONE SOD SUCC 125MG/2ML VIAL IVP SCH ×2 (08:13→21:19)
[2017-09-23] MEDS: FLUCONAZOLE 100 MG TAB PO SCH (08:13)
[2017-09-23] MEDS: TAMSULOSIN HCL 0.4 MG CAP.ER.24H PO SCH (08:13)
[2017-09-23 11:00] VITALS: BP 99/46
[2017-09-23 16:00] VITALS: BP 95/45
[2017-09-23 19:11] VITALS: BP 131/77
[2017-09-23] MEDS: ACETYLCYSTEINE 10% 100MG/ML 4ML VIAL IH SCH (20:28)
[2017-09-23] MEDS: VANCOMYCIN 1GM+NS 250ML 250 ML IV SCH (21:19)
[2017-09-23 23:16] VITALS: BP 110/57
[2017-09-24] MEDS: IPRATROPIUM/ALBUTEROL SULFATE 3 ML SOLUTION IH SCH ×4 (00:55→19:26)
[2017-09-24] MEDS: ACETYLCYSTEINE 10% 100MG/ML 4ML VIAL IH SCH ×4 (00:55→19:26)
[2017-09-24 03:11] VITALS: BP 119/64
[2017-09-24 03:49] LABS: CREATININE 2.2 mg/dL (0.5-1.5)
[2017-09-24 03:51] LABS: HEMATOCRIT 26.3 % (42-54); MEAN CORPUSCULAR HEMOGLOBIN 29.7 pg (27.0-33.0); MEAN CORPUSCULAR HGB CONC 32.7 g/dL (32.0-36.0); MEAN CORPUSCULAR VOLUME 90.7 fL (79-99); PLATELET COUNT (AUTO) 54 K/uL (130-400); RED CELL DISTRIBUTION WIDTH 22.7 % (11.0-15.5)
[2017-09-24 03:55] LABS: POTASSIUM 2.3 mmol/L (3.5-5.1)
[2017-09-24 03:57] LABS: WHITE BLOOD COUNT (AUTO) 148.2 K/uL (4.8-10.8)
[2017-09-24] MEDS: POTASSIUM CHLORIDE 10 MEQ/TAB.SR PO PRN ×2 (04:08→10:32)
[2017-09-24] MEDS: POTASSIUM CHLORIDE 10% ELIXIR 20 MEQ/15 ML UDCUP PO PRN ×2 (04:09→10:33)
[2017-09-24] MEDS: INSULIN R PO SS1 SQ SCH ×4 (05:41→21:00)
[2017-09-24] MEDS: PIPERACILLIN SODIUM/TAZOBACTAM 3.375 GM VIAL IV SCH (05:42)
[2017-09-24] MEDS: FUROSEMIDE 10 MG/ML 4ML VIAL IV SCH ×2 (05:45→14:16)
[2017-09-24] MEDS: BUDESONIDE 0.5 MG/2 ML INH IH SCH ×2 (06:39→19:49)
[2017-09-24 08:00] VITALS: BP 109/61
[2017-09-24] MEDS: TAMSULOSIN HCL 0.4 MG CAP.ER.24H PO SCH (10:31)
[2017-09-24] MEDS: FLUCONAZOLE 100 MG TAB PO SCH (10:32)
[2017-09-24] MEDS: MEROPENEM 500 MG VIAL IVP SCH ×2 (10:32→21:30)
[2017-09-24] MEDS: METHYLPREDNISOLONE SOD SUCC 125MG/2ML VIAL IVP SCH ×2 (10:32→21:26)
[2017-09-24 11:00] VITALS: BP 107/60
[2017-09-24 16:00] VITALS: BP 118/56
[2017-09-24] MEDS: EPOETIN ALFA 10,000 UNIT/ML VIAL SQ SCH (17:48)
[2017-09-24 19:00] VITALS: BP 126/63
== END 2017-09-24 22:24 | DRG 871 ==
LOC: EDH 10:51 → EDHIP 12:33 → 4CH 14:15 → 2CH 09-12 01:41 → 2DH 09-13 21:06
PROVIDERS: ADMIT Internal Medicine; ATTEND Internal Medicine
PROC: 0B9B8ZX Drainage of Left Lower Lobe Bronchus, Via Natural or Artificial Opening Endoscopic, Diagnostic (ICD-10-PCS; 2017-09-08)
PROC: 5A09357 Assistance with Respiratory Ventilation, Less than 24 Consecutive Hours, Continuous Positive Airway Pressure (ICD-10-PCS; 2017-09-10)
PROC: 5A09357 Assistance with Respiratory Ventilation, Less than 24 Consecutive Hours, Continuous Positive Airway Pressure (ICD-10-PCS; 2017-09-11)
PROC: 5A09357 Assistance with Respiratory Ventilation, Less than 24 Consecutive Hours, Continuous Positive Airway Pressure (ICD-10-PCS; 2017-09-12)
PROC: 5A09357 Assistance with Respiratory Ventilation, Less than 24 Consecutive Hours, Continuous Positive Airway Pressure (ICD-10-PCS; 2017-09-13)
PROC: 5A09357 Assistance with Respiratory Ventilation, Less than 24 Consecutive Hours, Continuous Positive Airway Pressure (ICD-10-PCS; 2017-09-14)
PROC: 30233N1 Transfusion of Nonautologous Red Blood Cells into Peripheral Vein, Percutaneous Approach (ICD-10-PCS; principal; 2017-09-17)
PROC: 5A09357 Assistance with Respiratory Ventilation, Less than 24 Consecutive Hours, Continuous Positive Airway Pressure (ICD-10-PCS; 2017-09-17)
DX: A41.9 Sepsis, unspecified organism (principal); J11.00 Influenza due to unidentified influenza virus with unspecified type of pneumonia; J96.21 Acute and chronic respiratory failure with hypoxia; J84.9 Interstitial pulmonary disease, unspecified; C95.00 Acute leukemia of unspecified cell type not having achieved remission; E46 Unspecified protein-calorie malnutrition; D69.6 Thrombocytopenia, unspecified; C92.10 Chronic myeloid leukemia, BCR/ABL-positive, not having achieved remission; D75.81 Myelofibrosis; J44.0 Chronic obstructive pulmonary disease with (acute) lower respiratory infection; J44.1 Chronic obstructive pulmonary disease with (acute) exacerbation; G20 Parkinson's disease; E11.22 Type 2 diabetes mellitus with diabetic chronic kidney disease; D46.9 Myelodysplastic syndrome, unspecified; N18.3 Chronic kidney disease, stage 3 (moderate); J20.9 Acute bronchitis, unspecified; M48.00 Spinal stenosis, site unspecified; E87.6 Hypokalemia; I12.9 Hypertensive chronic kidney disease with stage 1 through stage 4 chronic kidney disease, or unspecified chronic kidney disease; E78.5 Hyperlipidemia, unspecified; Z68.23 Body mass index [BMI] 23.0-23.9, adult; Z23 Encounter for immunization; Z85.038 Personal history of other malignant neoplasm of large intestine; Z86.73 Personal history of transient ischemic attack (TIA), and cerebral infarction without residual deficits; Z87.891 Personal history of nicotine dependence
CPT/HCPCS: 36415; 36430; 36600; 71020; 71045; 71250; 73502; 76000; 76882; 80048; 80053; 80202; 81001; 81003; 82150; 82550; 82553; 82803; 82948; 83605; 83615; 83690; 83735; 83880; 84484; 84550; 85025; 85027; 85610; 85651; 85730; 86141; 86850; 86900; 86901; 86922; 87040; 87071; 87101; 87116; 87205; 87206; 87804; 88313; 89051; 93005; 94640; 94644; 94660; 94664; 94667; A4218; J0330; J0456; J0696; J0885; J1100; J1170; J1200; J1815; J1940; J2001; J2185; J2250; J2370; J2405; J2543; J2704; J2710; J2920; J2930; J3010; J3370; J3480; J3490; J7030; J7040; J7060; J7608; P9016